=== PATIENT | female | born 1980 | race Caucasian/White ===

== ENCOUNTER 2016-11-09 00:52 | Emergency (ER) | payer BC ==
[~2016-11-09] VITALS: Ht 175.3 cm; Wt 99.7 kg
[2016-11-09 01:56] LABS: BASOPHILS % (AUTO) 0 % (0-2); EOSINOPHILS % (AUTO) 0 % (0-4); LYMPHOCYTES # (AUTO) 1.5 X10^3; MEAN CORPUSCULAR HEMOGLOBIN 29.8 PG (26.0-34.0); MEAN CORPUSCULAR VOLUME 83 FL (80-100); MEAN PLATELET VOLUME 12.5 FL (6.0-9.5); MONOCYTES # (AUTO) 0.8 X10^3; MONOCYTES % (AUTO) 10 % (3-11); NEUTROPHILS # (AUTO) 5.4 X10^3; NEUTROPHILS % (AUTO) 70 % (51-67); PLATELET COUNT 197 10^3uL (150-450); WHITE BLOOD COUNT 7.74 10^3uL (4.0-11.0)
[2016-11-09 02:06] LABS: ALBUMIN 3.9 g/dL (3.4-5.0); ANION GAP 14.7 MEQ/L (3-15); CALCULATED IONIZED CALCIUM 4.1 mg/dL (3.8-4.6); TOTAL PROTEIN 7.1 g/dL (6.4-8.5)
[2016-11-09 02:20] LABS: BILIRUBIN,URINE Negative (Negative); CLARITY,URINE Slightly Cloudy; COLOR,URINE Yellow; GLUCOSE, URINE (UA) Negative (Negative); LEUKOCYTE ESTERASE ,URINE Negative (Negative); PH,URINE 5.5 (5.0 - 8.0); UROBILINOGEN,URINE 0.2 mg/dL (0.2-1.0)
[2016-11-09] MEDS ORDERED: HYDROmorphone 1 MG/ML (DILAUDID) SYRINGE IM ONE (02:45)
[2016-11-09 03:07] VITALS: BP 118/77
== END 2016-11-09 03:11 | disposition home or self-care (01) ==
LOC: ED 00:57
DX: O26.891 Other specified pregnancy related conditions, first trimester (principal); R10.84 Generalized abdominal pain; R19.7 Diarrhea, unspecified; Z3A.01 Less than 8 weeks gestation of pregnancy
CPT/HCPCS: 36415; 80053; 81003; 83690; 84702; 85025; 96372; 99283; J1170; 99282

== ENCOUNTER → 2017-01-14 | Outpatient (CLI) | payer BC | LOC: LAB 12:01 | PROVIDERS: ATTEND Family Medicine | DX: Z53.9 Procedure and treatment not carried out, unspecified reason (principal) | CPT/HCPCS: 82105; 82677; 84702; 86336 ==

== ENCOUNTER → 2017-02-11 | Outpatient (CLI) | payer BC ==
--- NOTE | 2017-02-11 11:31 | Diagnostic Imaging Report ---
INDICATION: anatomy survey. TECHNIQUE: Multiple real-time grayscale images were obtained over the gravid uterus. COMPARISON: None FINDINGS: There is a single live intrauterine with a heart rate of 150 beats per minute. The fetus is in transverse lie with the head to the maternal right. Placenta is anteriorly located without evidence of previa. Cervix is closed and measures 3 cm in length. The JANELL is normal at 17 cm. anatomy survey was performed and the following structures were visualized and normal: Cerebral ventricles, cerebellum, cisterna magna, spine, bilateral kidneys, stomach, aorta, diaphragm, umbilical cord insertion, four-chamber heart, urinary bladder and all four extremities. Biometrical measurements are as follows: Biparietal 4.71 cm, age 20 weeks 2 days. Head circumference 17.29 cm, age 19 weeks 6 days. Abdominal circumference 13.73 cm, age 19 weeks 2 days. Femur length 3.19 cm, age 20 weeks 0 days. Sonographic estimate age: 19 weeks 6 days. Sonographic estimated date of delivery: 07/02/2017. Estimated Weight: 301 gm (+/- 44 gm). LMP percentile: 54%. heart rate: 150 beats per minute. IMPRESSION: 1. Single live intrauterine with heart rate of 150 beats per minute. 2. Normal anatomy survey. 3. Please see above for biometrics. Dictated by: Dictated on workstation # [id number]
== END ==
LOC: RAD 08:51
PROVIDERS: ATTEND Family Medicine
DX: Z36 Encounter for antenatal screening of mother (principal)
CPT/HCPCS: 76805